=== PATIENT | male | born 1950 | race Caucasian/White ===

== ENCOUNTER 2018-10-30 12:05 | Inpatient (IN) | payer OTHER ==
[~2018-10-30] VITALS: Ht 175.3 cm; Wt 117.9 kg
[~2018-10-30 12:05] MED LIST: ANAS1TAB PO; ASMANEX PO; ATOR40TA PO; BACITRACIN 50,000 UNIT ONE; BUPIVACAINE/PF-EPI 0.5% 1:200K ONE; CEFAZOLIN 1,000 MG ONE; CYCLOBENZAPRINE 10 MG TABLET ONE; DEXAMETHASONE 4 MG/ML, 1ML ONE; EPHEDRINE 50 MG/ML, 1ML ONE; ERGO500017 PO; FENTANYL PF 250 MCG/5ML ONE; FISH1CAP PO; LOSA100T7 PO; MAGNESIUM PO; METO25TA91 PO; MIDAZOLAM 1 MG/ML, 2ML ONE; MULT-717 PO; OMEP-110 PO; ONDANSETRON 2MG/ML, 2ML ONE; OXYCODONE PO; OXYcodone 5 MG/5 ML ORAL.SOL UDC ONE; POTA20PA25 PO; PROPOFOL 10 MG/ML, 20ML ONE; PROPOFOL 10 MG/ML, 50ML ONE; SUCCINYLCHOLINE 20 MG/ML, 10ML ONE; THROMBIN 5,000 UNIT VIAL TP ONE; ZOLP10TA PO
[2018-10-30] MEDS ORDERED: LACTATED RINGERS 1,000 ML IV SCH (15:28)
[2018-10-30] MEDS ORDERED: GABAPENTIN 300 MG CAPSULE PO ONE (16:00)
[2018-10-30] MEDS ORDERED: ACETAMINOPHEN 500 MG TABLET PO ONE (16:00)
[2018-10-30] MEDS ORDERED: insulin SQ (16:20)
[2018-10-30] MEDS ORDERED: lantus SQ (16:20)
[2018-10-30] MEDS ORDERED: BUPIVACAINE/PF-EPI 0.5% 1:200K INFIL ONE (18:04)
[2018-10-30] MEDS ORDERED: OXYcodone 5 MG/5 ML ORAL.SOL UDC PO PRN (19:30)
[2018-10-30] MEDS ORDERED: PROMETHAZINE 25 MG/ML, 1ML IV PRN (19:30)
[2018-10-30] MEDS ORDERED: hydrALAzine 20 MG/ML, 1ML IV PRN (19:30)
[2018-10-30] MEDS ORDERED: LABETALOL 5MG/ML, 20ML IV PRN ×2 (19:30→22:30)
[2018-10-30] MEDS ORDERED: HALOPERIDOL 5 MG/ML IV PRN (19:30)
[2018-10-30] MEDS ORDERED: ALBUTEROL SULFATE 2.5 MG/3 ML NPPB PRN (19:30)
[2018-10-30] MEDS ORDERED: FENTANYL PF 100 MCG/2ML IV PRN (19:30)
[2018-10-30] MEDS ORDERED: LORazepam 2 MG/ML, 1ML IVPush PRN (19:30)
[2018-10-30] MEDS: HYDROmorphone 2 MG/ML, 1ML IVPush PRN ×3 (20:15→20:30)
[2018-10-30] MEDS ORDERED: CYCLOBENZAPRINE 10 MG TABLET PO ONE (21:00)
[2018-10-30] MEDS ORDERED: ZOLPIDEM 5MG TABLET PO PRN (21:00)
[2018-10-30 21:07] VITALS: BP 161/76
[2018-10-30] MEDS ORDERED: PHARMACY MAY ADJ FOR RENAL FX MC PRN (22:00)
[2018-10-30] MEDS ORDERED: ACETAMINOPHEN 325 MG TABLET PO PRN (22:30)
[2018-10-30] MEDS ORDERED: BISACODYL 10 MG SUPP PR PRN (22:30)
[2018-10-30] MEDS ORDERED: DIPHENHYDRAMINE 50 MG/ML, 1ML IVPush PRN (22:30)
[2018-10-30] MEDS ORDERED: OXYcodone IR 5MG TABLET PO PRN ×2 (22:30)
[2018-10-30] MEDS ORDERED: ONDANSETRON 2MG/ML, 2ML IV PRN (22:30)
[2018-10-30] MEDS ORDERED: MAGNESIUM HYDROXIDE 8%, 30ML UDC PO PRN (22:30)
[2018-10-30] MEDS ORDERED: DIPHENHYDRAMINE 25 MG CAPSULE PO PRN (22:30)
[2018-10-30] MEDS ORDERED: morphine SULFATE 10 MG/ML, 1ML IV PRN (22:30)
[2018-10-30] MEDS ORDERED: CYCLOBENZAPRINE 10 MG TABLET PO PRN (22:30)
[2018-10-31 00:55] VITALS: BP 141/74
[2018-10-31] MEDS: DEXAMETHASONE 4 MG/ML, 1ML IV SCH ×2 (01:51→08:02)
[2018-10-31] MEDS: CEFAZOLIN 1,000 MG in SODIUM CHLORIDE 0.9% 50 ML IVPB SCH ×2 (01:51→10:57)
[2018-10-31] MEDS: LACTATED RINGERS 1,000 ML IV SCH ×3 (01:51→17:25)
[2018-10-31 04:13] VITALS: BP 147/64
[2018-10-31 05:41] LABS: BASOPHILS # (AUTO) 0.02 x10^3/uL (0-0.1); BASOPHILS % (AUTO) 0 % (0-1); EOSINOPHILS % (AUTO) 0 % (1-7); LYMPHOCYTES # (AUTO) 1.19 x10^3/uL (1-3.4); LYMPHOCYTES % (AUTO) 12 % (22-44); MD NO; MEAN CORPUSCULAR HEMOGLOBIN 32.4 pg (27.5-34.5); MEAN CORPUSCULAR HGB CONC 34.8 g/dL (33.2-36.2); MEAN CORPUSCULAR VOLUME 93.2 fL (81-97); MEAN PLATELET VOLUME 7.8 fL (7.4-10.4); MONOCYTES # (AUTO) 0.33 x10^3/uL (0.2-0.8); MONOCYTES % (AUTO) 3 % (2-9); NEUTROPHILS % (AUTO) 85 % (42-75); PLATELET COUNT 197 x10^3/uL (130-400); RED CELL DISTRIBUTION WIDTH 12.6 % (9.4-14.8)
[2018-10-31 05:42] LABS: ANION GAP 9 mmol/L (5-15); CALCIUM 8.2 mg/dL (8.5-10.1); CHLORIDE 105 mmol/L (98-107); CREATININE 1.21 mg/dL (0.7-1.3)
[2018-10-31] MEDS: OMEPRAZOLE 20 MG CAPSULE.DR PO SCH ×2 (05:51→20:33)
[2018-10-31 08:00] VITALS: BP 128/62
[2018-10-31] MEDS: INSULIN REGULAR 100 UNITS/ML, 3ML VIAL SQ-INSULIN SCH ×4 (08:00→20:40)
[2018-10-31] MEDS ORDERED: FAMOTIDINE 20 MG TABLET PO SCH (08:00)
[2018-10-31] MEDS: MAGNESIUM OXIDE 400 MG TABLET PO SCH ×2 (08:03→20:25)
[2018-10-31] MEDS: DOXYCYCLINE 100MG TABLET PO SCH ×2 (08:05→20:33)
[2018-10-31] MEDS: LOSARTAN 50MG TABLET PO SCH (08:05)
[2018-10-31] MEDS: METOPROLOL SUCCINATE 25 MG TAB.ER.24H PO SCH ×2 (08:06→20:24)
[2018-10-31] MEDS: SENNA/DOCUSATE TABLET PO SCH (08:06)
[2018-10-31] MEDS: POTASSIUM CHLORIDE 20 MEQ TAB.ER.PRT PO SCH (08:06)
[2018-10-31] MEDS: ANASTROZOLE 1 MG TABLET PO SCH (08:08)
[2018-10-31] MEDS ORDERED: SODIUM CHLORIDE FLUSH 10ML SYR IVF SCH (09:00)
[2018-10-31] MEDS: BUDESONIDE 0.5 MG/2 ML INHA NPPB SCH ×2 (09:00→21:00)
[2018-10-31 14:00] VITALS: BP 121/61
[2018-10-31 18:39] VITALS: BP 130/75
[2018-10-31] MEDS ORDERED: ATORVASTATIN 40 MG TABLET PO SCH (21:00)
[2018-11-01 01:13] VITALS: BP 131/65
[2018-11-01] MEDS: LACTATED RINGERS 1,000 ML IV SCH (04:53)
[2018-11-01 06:57] VITALS: BP 149/79
[2018-11-01] MEDS: POTASSIUM CHLORIDE 20 MEQ TAB.ER.PRT PO SCH (07:58)
[2018-11-01] MEDS: SENNA/DOCUSATE TABLET PO SCH (07:58)
[2018-11-01] MEDS: DOXYCYCLINE 100MG TABLET PO SCH (07:58)
[2018-11-01] MEDS: LOSARTAN 50MG TABLET PO SCH (07:58)
[2018-11-01] MEDS: MAGNESIUM OXIDE 400 MG TABLET PO SCH (07:58)
[2018-11-01] MEDS: METOPROLOL SUCCINATE 25 MG TAB.ER.24H PO SCH (07:58)
[2018-11-01] MEDS: ANASTROZOLE 1 MG TABLET PO SCH (08:04)
[2018-11-01] MEDS: INSULIN REGULAR 100 UNITS/ML, 3ML VIAL SQ-INSULIN SCH (08:05)
[2018-11-01] MEDS ORDERED: CYCL-259 PO (08:31)
[2018-11-01] MEDS ORDERED: OXYC5CAP2 PO (08:31)
[2018-11-01] MEDS ORDERED: DOXY100T9 PO (08:32)
== END 2018-11-01 09:30 | disposition home or self-care (01) | DRG 472 ==
LOC: ORIP 15:14 → 4NOR 21:00
PROVIDERS: ADMIT Neurological Surgery; ATTEND Neurological Surgery
PROC: 0RB30ZZ Excision of Cervical Vertebral Disc, Open Approach (ICD-10-PCS; 2018-10-30)
PROC: 4A11X4G Monitoring of Peripheral Nervous Electrical Activity, Intraoperative, External Approach (ICD-10-PCS; 2018-10-30)
PROC: 0RG20A0 Fusion of 2 or more Cervical Vertebral Joints with Interbody Fusion Device, Anterior Approach, Anterior Column, Open Approach (ICD-10-PCS; principal; 2018-10-30 14:30)
DX: M48.02 Spinal stenosis, cervical region (principal); G95.89 Other specified diseases of spinal cord; M50.122 Cervical disc disorder at C5-C6 level with radiculopathy; M50.322 Other cervical disc degeneration at C5-C6 level; M25.78 Osteophyte, vertebrae; M50.323 Other cervical disc degeneration at C6-C7 level; F32.9 Major depressive disorder, single episode, unspecified; F41.9 Anxiety disorder, unspecified; E11.9 Type 2 diabetes mellitus without complications; Z91.012 Allergy to eggs; Z88.2 Allergy status to sulfonamides; Z88.8 Allergy status to other drugs, medicaments and biological substances; Z82.49 Family history of ischemic heart disease and other diseases of the circulatory system; Z81.1 Family history of alcohol abuse and dependence
CPT/HCPCS: 36415; 72040; 76001; J7626; 80048; 82962; 85025; 86850; 86900; 94640; C1713; G0378; J0690; J1100; J1170; J1815; J2250; J2405; J2704; J3010; C1762; J0330; J7120